=== PATIENT | male | born 1980 | race African-American/Black ===

== ENCOUNTER 2023-07-23 11:12 | Emergency (ER) | payer MEDICAID, OTHER ==
[~2023-07-23] VITALS: Ht 177.8 cm; Wt 90.0 kg
[2023-07-23 11:21] VITALS: O2SAT 98
[2023-07-23 11:54] LABS: BASOPHILS % 1.8 % (0.0-2.0); EOSINOPHILS % 1.5 % (0.0-5.0); HEMATOCRIT. 44.7 % (42.0-52.0); LYMPHOCYTES % 48.8 % (20.0-50.0); MEAN CORPUSCULAR HEMOGLOBIN 31.2 pg (28.0-32.0); MEAN CORPUSCULAR HGB CONC 33.6 g/dL (31.0-37.0); MEAN CORPUSCULAR VOLUME 92.8 fL (80.0-94.0); MEAN PLATELET VOLUME 8.2 fl (7.4-10.4); MONOCYTES % 11.1 % (2.0-8.0); NEUTROPHILS % 36.8 % (40.0-76.0); PLATELET 114 x1000/uL (130-400); RED BLOOD CELL COUNT 4.82 mill/uL (4.7-6.1); RED CELL DISTRIBUTION WIDTH 16.4 % (11.6-14.6); WHITE BLOOD COUNT 5.3 x1000/uL (4.5-11.0)
[2023-07-23 12:05] LABS: ALANINE AMINOTRANSFERASE 118 IU/L (10-49); ALBUMIN 4.8 g/dL (3.2-4.8); ASPARTATE AMINOTRANSFERASE 179 IU/L (<34); BILIRUBIN TOTAL 0.8 mg/dL (0.1-1.0); CARBON DIOXIDE 20 mEq/L (21-32); CHLORIDE 100 mEq/L (98-107); CREATININE 0.8 mg/dL (0.6-1.3); ETHANOL BLOOD 258 mg/dL (<10); GLUCOSE 84 mg/dL (70-105); POTASSIUM 3.7 mEq/L (3.5-5.1); PROTEIN TOTAL 8.2 g/dL (6.0-8.3); SODIUM 139 mEq/L (136-145); UREA NITROGEN BLOOD 8 mg/dL (9-23)
[2023-07-23] MEDS: PANTOPRAZOLE SODIUM 40 MG/VIAL IV STA (12:41)
[2023-07-23] MEDS: ONDANSETRON HCL 4MG/2ML INJ IV STA (12:41)
[2023-07-23] MEDS: SODIUM CHLORIDE 0.9% 1,000 ML IV ONE (12:45)
[2023-07-23] MEDS: MAGNESIUM/ALUMINUM HYDROXIDE/SIMETHICONE 30ML UDC PO ONE (12:45)
[2023-07-23 13:08] LABS: INR 0.9; PROTHROMBIN TIME 10.3 sec (9.6-11.0)
[2023-07-23 14:00] VITALS: BP 135/82; PULSE 88; RESP 15; TEMP 98.4
[2023-07-23] MEDS ORDERED: PROT40 MT (14:08)
[2023-07-23] MEDS: METOCLOPRAMIDE HCL 10MG/2ML VIAL IM ONE (15:36)
== END 2023-07-23 14:35 | disposition home or self-care (01) ==
LOC: ER 11:30
DX: K29.20 Alcoholic gastritis without bleeding (principal); F10.20 Alcohol dependence, uncomplicated; F12.90 Cannabis use, unspecified, uncomplicated; Y90.8 Blood alcohol level of 240 mg/100 ml or more
CPT/HCPCS: 80053; 80320; 83690; 85025; 85610; 86850; 86900; 86901; 36415; 93005; 96361; 96372; 96374; 96375; 99284; J2765; J2405; C9113; J7030; Z7610; G0480

== ENCOUNTER 2023-09-28 13:07 | Emergency (ER) | payer MEDICAID, OTHER ==
[~2023-09-28] VITALS: Ht 177.8 cm; Wt 76.0 kg
[~2023-09-28 13:07] MED LIST: PROT40 MT
[2023-09-28 13:12] VITALS: BP 149/84; PULSE 110; RESP 18; TEMP 98.2; O2SAT 99
[2023-09-28] MEDS ORDERED: ONDANSETRON 4MG ODT PO ONE (13:30)
== END 2023-09-28 15:07 | disposition left against medical advice (07) ==
LOC: ER 13:42
DX: F10.129 Alcohol abuse with intoxication, unspecified (principal); R56.9 Unspecified convulsions; F12.10 Cannabis abuse, uncomplicated; Y90.9 Presence of alcohol in blood, level not specified
CPT/HCPCS: 99283; Q0162

== ENCOUNTER 2023-09-28 15:11 | Emergency (ER) | payer MEDICAID, OTHER ==
[~2023-09-28] VITALS: Ht 182.9 cm; Wt 93.0 kg
[2023-09-28 15:12] VITALS: BP 147/101; PULSE 85; RESP 19; TEMP 98.5; O2SAT 98
== END 2023-09-28 17:02 | disposition home or self-care (01) ==
LOC: ER 15:11
DX: F10.20 Alcohol dependence, uncomplicated (principal); F12.10 Cannabis abuse, uncomplicated
CPT/HCPCS: 99283

== ENCOUNTER 2023-10-27 10:43 | Emergency (ER) | payer MEDICAID ==
[~2023-10-27] VITALS: Ht 170.2 cm; Wt 90.0 kg
[2023-10-27 10:45] VITALS: O2SAT 97
[2023-10-27] MEDS: LACTATED RINGERS 1,000 ML IV SCH ×2 (11:19→15:06)
[2023-10-27] MEDS: METOCLOPRAMIDE HCL 10MG/2ML VIAL IV ONE (11:19)
[2023-10-27 11:37] LABS: BASOPHILS % 2.5 % (0.0-2.0); EOSINOPHILS % 0.9 % (0.0-5.0); HEMATOCRIT. 39.5 % (42.0-52.0); HEMOGLOBIN. 13.3 g/dL (14.0-18.0); LYMPHOCYTES % 44.9 % (20.0-50.0); MEAN CORPUSCULAR HEMOGLOBIN 29.7 pg (28.0-32.0); MEAN CORPUSCULAR HGB CONC 33.5 g/dL (31.0-37.0); MEAN CORPUSCULAR VOLUME 88.5 fL (80.0-94.0); MEAN PLATELET VOLUME 7.7 fl (7.4-10.4); MONOCYTES % 14.5 % (2.0-8.0); NEUTROPHILS % 37.2 % (40.0-76.0); PLATELET 134 x1000/uL (130-400); RED BLOOD CELL COUNT 4.47 mill/uL (4.7-6.1); RED CELL DISTRIBUTION WIDTH 17.6 % (11.6-14.6); WHITE BLOOD COUNT 4.3 x1000/uL (4.5-11.0)
[2023-10-27 11:51] LABS: CHLORIDE 93 mEq/L (98-107); POTASSIUM 3.1 mEq/L (3.5-5.1); SODIUM 139 mEq/L (136-145)
[2023-10-27 11:52] LABS: CALCIUM 9.4 mg/dL (8.7-10.4); CARBON DIOXIDE 26 mEq/L (21-32)
[2023-10-27 11:56] LABS: TROPONIN I HIGH SENSITIVITY 9 ng/L (3.0-53)
[2023-10-27 11:57] LABS: CREATININE 0.8 mg/dL (0.6-1.3); GLUCOSE 82 mg/dL (70-105)
[2023-10-27 11:58] LABS: UREA NITROGEN BLOOD 7 mg/dL (9-23)
[2023-10-27 11:59] LABS: ALANINE AMINOTRANSFERASE 92 IU/L (10-49); ALBUMIN 4.7 g/dL (3.2-4.8); ASPARTATE AMINOTRANSFERASE 225 IU/L (<34); BILIRUBIN DIRECT 0.6 mg/dL (<=3.0)
[2023-10-27 12:00] LABS: BILIRUBIN TOTAL 1.3 mg/dL (0.1-1.0); PROTEIN TOTAL 7.9 g/dL (6.0-8.3)
[2023-10-27] MEDS ORDERED: FAMO-135 MT (14:57)
[2023-10-27] MEDS ORDERED: MAG355OR21 MT (14:57)
[2023-10-27] MEDS ORDERED: ONDA4TAB50 MT (14:57)
[2023-10-27 15:00] LABS: TROPONIN I HIGH SENSITIVITY 13 ng/L (3.0-53)
[2023-10-27 15:01] LABS: CREATINE KINASE 683 IU/L (46-171)
[2023-10-27] MEDS: ONDANSETRON HCL 4MG/2ML INJ IV ONE (15:06)
[2023-10-27 15:52] VITALS: BP 139/82; PULSE 86; RESP 15; TEMP 98.4
== END 2023-10-27 16:05 | disposition home or self-care (01) ==
LOC: ER 10:43
DX: R07.89 Other chest pain (principal); F10.129 Alcohol abuse with intoxication, unspecified; Z86.59 Personal history of other mental and behavioral disorders; Y90.9 Presence of alcohol in blood, level not specified
CPT/HCPCS: 80076; 80048; 82550; 83690; 85025; 84484; 36415; 71045; 93005; 96361; 96374; 96375; 99285; J2765; J2405; Z7610

== ENCOUNTER 2024-04-20 01:13 | Emergency (ER) | payer MEDICAID, OTHER ==
[~2024-04-20] VITALS: Ht 182.9 cm; Wt 77.0 kg
[~2024-04-20 01:13] MED LIST changes: +FAMO-135 MT; +MAG355OR21 MT; +ONDA4TAB50 MT
[2024-04-20 01:15] VITALS: O2SAT 99
[2024-04-20] MEDS: DEXTROSE 50% WATER 50ML SYRINGE IV ONE (01:28)
[2024-04-20] MEDS: SODIUM CHLORIDE 0.9% 1,000 ML IV ONE (01:36)
[2024-04-20 01:39] LABS: BASOPHILS % 0.4 % (0.0-2.0); EOSINOPHILS % 0.7 % (0.0-5.0); HEMOGLOBIN. 13.5 g/dL (14.0-18.0); LYMPHOCYTES % 12.7 % (20.0-50.0); MEAN CORPUSCULAR HEMOGLOBIN 32.3 pg (28.0-32.0); MEAN CORPUSCULAR HGB CONC 34.6 g/dL (31.0-37.0); MEAN CORPUSCULAR VOLUME 93.4 fL (80.0-94.0); MEAN PLATELET VOLUME 7.2 fl (7.4-10.4); MONOCYTES % 1.2 % (2.0-8.0); PLATELET 154 x1000/uL (130-400); RED BLOOD CELL COUNT 4.18 mill/uL (4.7-6.1); RED CELL DISTRIBUTION WIDTH 16.9 % (11.6-14.6); WHITE BLOOD COUNT 5.8 x1000/uL (4.5-11.0)
[2024-04-20 01:48] LABS: CARBON DIOXIDE 27 mEq/L (21-32); CHLORIDE 105 mEq/L (98-107); POTASSIUM 3.4 mEq/L (3.5-5.1); SODIUM 147 mEq/L (136-145)
[2024-04-20 01:49] LABS: CALCIUM 9.3 mg/dL (8.7-10.4)
[2024-04-20 01:54] LABS: CREATININE 0.8 mg/dL (0.6-1.3); GLUCOSE 59 mg/dL (70-105); UREA NITROGEN BLOOD 7 mg/dL (9-23)
[2024-04-20 01:55] LABS: AMMONIA 29 uMol/L (<32)
[2024-04-20 01:56] LABS: CREATINE KINASE 417 IU/L (46-171)
[2024-04-20 02:03] LABS: ETHANOL BLOOD 361 mg/dL (<10)
[2024-04-20] MEDS: ONDANSETRON HCL 4MG/2ML INJ IV ONE (04:33)
[2024-04-20] MEDS: KCL 20MEQ/100ML PREMIX 100 ML IV NR (05:04)
[2024-04-20 07:11] VITALS: BP 142/89; PULSE 118; RESP 15; TEMP 37.16964; O2SAT 97
== END 2024-04-20 07:25 | disposition short-term general hospital (02) ==
LOC: ER 01:13 → EDBEDREQTM 04:16 → EDBEDREQ 04:16 → ER 07:25
DX: R55 Syncope and collapse (principal); E87.6 Hypokalemia; E87.0 Hyperosmolality and hypernatremia; E16.2 Hypoglycemia, unspecified; T51.0X1A Toxic effect of ethanol, accidental (unintentional), initial encounter; Z86.59 Personal history of other mental and behavioral disorders; Y90.8 Blood alcohol level of 240 mg/100 ml or more
CPT/HCPCS: 80048; 80320; 82140; 82550; 85025; 36415; 71045; 70450; 93005; 96361; 96365; 96375; 99285; J2405; J3480; J7030; Z7610 ×2; G0480